=== PATIENT | male | born 1945 | race African-American/Black ===

== ENCOUNTER 2019-04-30 05:13 | Day surgery (SDC) | payer MEDICARE, OTHER, SELFPAY ==
[2019-04-29 14:42] VITALS: BMI 38.0
[2019-04-30 08:40] VITALS: BP 152/99; PULSE 64; RESP 16; TEMP 36.7; O2SAT 100
[2019-04-30 08:44] LABS: Basophils Percent Auto 1.2 % (0.2-1.2); Eosinophils Absolute Auto 0.2 K/mm3 (0-0.3); Eosinophils Percent Auto 4.6 % (0-4.4); Hematocrit 45.5 % (42.0-52.0); Hemoglobin 14.5 g/dL (14.0-18.0); Immature Granulocyte Absolute 0.01 K/mm3 (0.00-0.031); Immature Granulocyte Percent A 0.3 % (0-0.5); Lymphocytes Absolute Auto 1.55 K/mm3 (0.9-3.2); Lymphocytes Percent Auto 47.4 % (18.3-44.2); Mean Corpuscular HGB Conc 31.9 g/dl (32-36); Mean Corpuscular Hemoglobin 26.1 pg (26-34); Mean Platelet Volume 11.5 fl (7.4-10.4); Monocytes Absolute Auto 0.3 K/mm3 (0.1-0.6); Neutrophils Absolute Auto 1.3 K/mm3 (1.3-6.7); Neutrophils Percent Auto 38.5 % (45.5-73.1); Platelet Count Result 196 k/mm3 (150-375); Red Blood Count 5.55 M/mm3 (4.6-6.20); Red Cell Distribution Width 14.8 % (11.5-14.5); White Blood Count 3.3 K/mm3 (4.5-10.0)
[2019-04-30 08:55] LABS: Blood Urea Nitrogen 14 mg/dL (9-20); Calcium 8.8 mg/dL (8.4-10.2); Carbon Dioxide 28 mmol/L (22-30); Chloride 102 mmol/L (98-107); Estimated CRCL calculation 88 ml/min; Estimated Glomerular Filt Rate > 60; Glucose 135 mg/dL (75-110); Potassium 4.3 mmol/L (3.4-5.0); Prothrombin Time 12.7 Seconds (11.1-14.7); Sodium 139 mmol/L (137-145)
--- NOTE | 2019-04-30 10:03 | WPDMODSED ---
Moderate Sedation Note-Pt Data Patient Data Diagnosis: Complete heart block with permanent dual-chamber pacemaker at [facility] Present Complaint: no complaints Procedure to be performed/Plan: explantation of depleted pulse generator and implantation of new dual-chamber pulse generator Allergies Allergy/AdvReac Type Severity Reaction Status Date / Time hydrochlorothiazide Allergy Mild Verified 10/06/12 13:19 peanut Allergy Unknown SWELLING, Verified 06/29/08 10:53 SOB, HIVES Penicillins Allergy Unknown Verified 06/29/10 09:24 Xgbvhzz-Ejj-Erx Reductase Allergy Unknown Verified 08/31/10 09:50 Inhibitor Home Medications Medication Instructions Recorded Confirmed Type carvedilol 12.5 mg PO BID 04/30/19 04/30/19 History colesevelam [WelChol] 2 mg PO BID 04/30/19 04/30/19 History ezetimibe 10 mg PO DAILY 04/30/19 04/30/19 History furosemide 20 mg PO PRN 04/30/19 04/30/19 History indomethacin 25 mg PO PRN 04/30/19 04/30/19 History losartan 100 mg PO DAILY 04/30/19 04/30/19 History Sedation/Anesthesia: No previous sedation/anesthesia problems (including family history). [facility] Social History Social History Smoking status: Never smoker Gender identity (if verbalized by the patient): Male Mod Sed Physical Exam Physical Exam Pre Procedural Exam: Normal: Neck, Throat, Airway, Lungs, Heart Size, Heart Rate, Heart Rhythm, Neuro Exam and Extremities and Variation: Appearance ( obese black male no apparent distress) Hours since solid foods: 12 Hours since liquid intake: 12 Internal Medicine - PN: Obj Da Vital Signs Vital Signs: Vital Signs - 24 hr 04/30/19 08:40 Temperature 36.7 C Pulse Rate 64 Respiratory Rate 16 Blood Pressure 152/99 H Pulse Oximetry 100 Labs CBC & Chem 7: 04/30/19 08:31 04/30/19 08:31 Labs: Laboratory Results - last 24 hr 04/30/19 04/30/19 04/30/19 08:31 08:31 08:31 WBC 3.3 L RBC 5.55 Hgb 14.5 Hct 45.5 MCV 82.0 MCH 26.1 MCHC 31.9 L RDW 14.8 H Plt Count 196 MPV 11.5 H Immature Gran % (Auto) 0.3 Neut % (Auto) 38.5 L Lymph % (Auto) 47.4 H [place] % (Auto) 8.0 Eos % (Auto) 4.6 H Baso % (Auto) 1.2 Lymph # (Auto) 1.55 [place] # (Auto) 0.3 Eos # (Auto) 0.2 Baso # (Auto) 0.0 Abs Immat Gran (auto) 0.01 Absolute Neuts (auto) 1.3 Absolute Nucleated RBC 0.0 Nucleated RBC % 0.0 PT 12.7 INR 1.0 Sodium 139 Potassium 4.3 Chloride 102 Carbon Dioxide 28 BUN 14 Creatinine 0.90 Estim Creat Clear Calc 88 Estimated GFR > 60 Glucose 135 H Calcium 8.8 ASA Classification/Sedation ASA Classification/Sedation ASA Class: II Emergent: No Risks: Risks, benefits and alternatives explained and patient/family accepted plan for sedation. Patient re-evaluated immediately prior to sedation.
--- NOTE | 2019-04-30 11:21 | WPDCARDPROC ---
Cardiac Cath Procedure Note Date of procedure:: 04/30/19 Performing physician:: Jhonathan Rucker MD Indication:: complete heart block with permanently implanted dual-chamber pacemaker at [facility] Brief clinical history:: 74-year-old gentleman with a history of complete heart block who underwent permanent pacemaker implantation in 2008. The device and routine office follow-up has been found to be at [facility] he is admitted today for elective pacemaker generator change. He is pacemaker dependent and a temporary transvenous wire is planned for protection of his cardiac rhythm during this procedure. Procedure Procedure performed:: placement of temporary transvenous pacing catheter from right femoral vein explantation of depleted pacemaker pulse generator implantation of new dual-chamber pacemaker pulse generator Sedation/Medication given:: fentanyl 50 mg Versed 2 mg case start time 10:24 a.m. case end time 11:17 a.m. sedation provided by Silvana Darling RN, trained observer Access site:: right femoral vein left subclavian fossa Estimated blood loss:: 10-15 cc Procedure note:: patient was brought to the catheterization lab in the postabsorptive state placed supine position. The right femoral triangle was prepared and draped in the usual sterile fashion. 1% lidocaine was infiltrated locally. The right femoral vein was punctured using the modified Seldinger technique a 7 [place] vascular this sheath was then placed. Following this a balloon tipped temporary pacing lead was advanced into the right ventricle out near the apex above the chronically implanted the permanent ventricular lead. Appropriate pacing and sensing performance was demonstrated. The temporary pacemaker was then turned on at a VVI mode at a rate of 50 beats per minute for rhythm protection. Following this rub was broken and I risk rub for the thoracic portion of the procedure the left anterior chest wall was prepped and draped in the usual fashion. The pacemaker pocket was easily identified with the previous incision. The region was infiltrated with 1% lidocaine. Then using the plasma blade incision was made over the chronically implanted device and the subcutaneous tissue was dissected down to the fibrous capsule. Electrocautery was used to secure continues hemostasis. Following this the fibrous capsule was opened using the plasma blade and the chronically implanted device was implant explanted and found to be visually intact. The leads were disconnected from the device using the torque wrench and secured to the new device using the same torque wrench. Following this the pocket was irrigated with antibiotic infused saline. Some additional electrocautery was used to provide additional hemostasis. Following this the device was placed back into the pocket and the pocket was closed in layers using 3 0 Vicryl in interrupted fashion for the subcutaneous tissue and for 0 Vicryl in a running subcuticular fashion for the skin. The wound was dressed with an Aquacel dressing patient was taken to the holding area in stable condition the procedure was well tolerated. Following the completion of the device the temporary transvenous lead was disconnected from the patient the lead was then removed and 5 minutes of light pressure was used to secure venous hemostasis. Findings:: The explanted device is a Medtronic dual-chamber pacemaker [id number] CAIO R01 implanted initially January 10 2009. the new pacemaker is a Medtronic dual-chamber device model W3DR01, serial [id number] . the device is programmed in DDD R mode with lower rate limit 60 upper rate limit 130. AV delay 180/150 milliseconds. The atrial lead is a Medtronic model 5076-5 2 serial number [id number] the P-waves are sensed at 4.5 mV threshold 0.75 volts at 0.4 milliseconds pacing impedance 380 Ohms the ventricular lead is a Medtronic bipolar lead model 4092-58 serial number [id number] . R-waves are not sent status the pa
[2019-04-30 11:50] VITALS: BP 161/89; PULSE 60; RESP 16; TEMP 36.6; O2SAT 100
[2019-04-30 12:00] VITALS: BP 152/101; PULSE 60; RESP 16; O2SAT 100
[2019-04-30 12:15] VITALS: BP 151/98; PULSE 60; RESP 16; O2SAT 99
[2019-04-30 12:30] VITALS: BP 148/90; PULSE 60; PULSE 61; RESP 16; O2SAT 100
--- NOTE | 2019-04-30 12:53 | SUR.PHASEII ---
1250 pt up getting dressed independantly in room with at bedside, discharge instructions reviewed-all questions answered.
== END 2019-04-30 13:08 | disposition home or self-care (01) ==
PROVIDERS: Visit Provider Specialist
PROC: 0JPT0PZ Removal of Cardiac Rhythm Related Device from Trunk Subcutaneous Tissue and Fascia, Open Approach (ICD-10-PCS; CPT 33228; principal; 2019-04-30 10:00)
DX: Z45.010 Encounter for checking and testing of cardiac pacemaker pulse generator [battery] (principal); I44.2 Atrioventricular block, complete; I42.9 Cardiomyopathy, unspecified
CPT/HCPCS: 33208; 33228; 36415; 80048; 85025; 85610; C1785; J1644; J2250; J3010; J3370; J7040